=== PATIENT | female | born 1975 | race Caucasian/White ===

== ENCOUNTER 2018-12-28 16:02 | Emergency (ER) | payer MEDICAID, OTHER ==
[~2018-12-28] VITALS: Ht 165.1 cm; Wt 110.0 kg
[2018-12-28] MEDS ORDERED: ondansetron 4mg rapidly disintigrating tab PO ONE (16:55)
[2018-12-28 17:09] LABS: URINE HCG NEGATIVE (NEG)
[2018-12-28] MEDS: LORazepam 0.5 MG tablet PO PRN ×2 (17:10→22:13)
[2018-12-28 17:20] LABS: BASOPHILS # (AUTO) 0.1 X10'3 (0-0.2); BASOPHILS % (AUTO) 0.7 % (0-1); EOSINOPHILS % (AUTO) 0.3 % (0-6); HEMATOCRIT 34.6 % (35.0-45.0); HEMOGLOBIN 11.1 g/dl (12.0-16.0); LYMPHOCYTES # (AUTO) 2.1 X10'3 (1.1-4.8); LYMPHOCYTES % (AUTO) 28.2 % (21-51); MEAN CORPUSCULAR HEMOGLOBIN 23.7 PG (27.0-31.0); MEAN PLATELET VOLUME 7.1 FL (7.4-10.4); MONOCYTES # (AUTO) 0.5 X10'3 (0-0.9); NEUTROPHILS # (AUTO) 4.9 X10'3 (1.8-7.7); NEUTROPHILS % (AUTO) 63.8 % (42-75); PLATELET COUNT 333 X10'3 (140-440); RED BLOOD COUNT 4.67 X10'6 (4.20-5.60); WHITE BLOOD COUNT 7.6 X10'3 (4.5-11.0)
[2018-12-28 17:28] LABS: ALANINE AMINOTRANSFERASE 23 U/L (12-78); ALBUMIN 3.6 G/DL (3.4-5.0); ALBUMIN/GLOBULIN RATIO 0.9 (1.1-1.5); ALKALINE PHOSPHATASE 66 IU/L (46-116); ANION GAP 12 (8-16); ASPARTATE AMINO TRANSFERASE 13 U/L (10-37); BILIRUBIN,TOTAL 0.1 MG/DL (0.1-1.0); BLOOD UREA NITROGEN 10 MG/DL (7-18); BUN/CREATININE RATIO 14.5 (6.6-38.0); CALCIUM 9.1 MG/DL (8.5-10.1); CHLORIDE 105 MMOL/L (99-107); CREATININE 0.69 MG/DL (0.40-0.90); GLUCOSE 111 MG/DL (70-104); POTASSIUM 3.7 MMOL/L (3.5-5.1); SODIUM 140 MMOL/L (135-145); TOTAL CARBON DIOXIDE 23.2 MMOL/L (24-32); TOTAL PROTEIN 7.8 G/DL (6.4-8.2); eGFR > 90 ML/MIN
[2018-12-28 17:32] LABS: URINE AMPHETAMINE SCREEN NEGATIVE (Neg); URINE BARBITUATE SCREEN NEGATIVE (Neg); URINE BENZODIAZEPINES SCREEN POSITIVE (Neg); URINE CANNABINOID SCREEN NEGATIVE (Neg); URINE COCAINE SCREEN NEGATIVE (Neg); URINE METHADONE SCREEN NEGATIVE (Neg); URINE OPIATE SCREEN NEGATIVE (Neg); URINE PHENCYCLIDINE SCREEN NEGATIVE (Neg)
[2018-12-28 17:33] LABS: ETHANOL < 0.010 GM/DL (0.0-0.010)
--- NOTE | 2018-12-28 20:20 | NUR ---
ASSSISTED PT INTO GREEN SCRUBS, COLLECTED URINE SPECIMEN. OFFERED TO TAKE INVENTORY ON PTS BELONGINGS. PT AND STATED THAT HE WILL TAKE ALL HER BELONGINGS HOME, SO NO BELONGINGS TO INVENTORY
--- NOTE | 2018-12-28 20:29 | NUR ---
CALLED AND SET UP PATIENT FOR A TELEPSYCH CONSULT
--- NOTE | 2018-12-28 21:22 | NUR ---
PT ASKING TO VAPE AND TOLD OUR POLICY. PT IS IRRATABLE ABOUT THIS. OFFERED A NICOTINE PATCH AND REPORTS SHE WOULD TRY IT. PT REPORTS SHE SMOKES "ALOT". PATCH AND ATIVAN PRN NOW ORDERED.
--- NOTE | 2018-12-28 21:43 | NUR ---
Pt was brought to overflow room 20 and is now visiting with her .
[2018-12-28] MEDS ORDERED: ARIP2TAB37 PO (21:56)
[2018-12-28] MEDS ORDERED: nicotine 21mg patch - 24 hr TD ONE (22:00)
--- NOTE | 2018-12-28 22:07 | NUR ---
Home meds completed and given to PA and signed and faxed to pharmacy.
--- NOTE | 2018-12-28 22:13 | NUR ---
NOT ABLE TO SCAN ATIVAN, THE PACKAGE TORE WHEN I TOOK IT OUT OF THE [employer] FROM THE OTHER ATIVAN PACKAGE THAT WAS ATTACHED TO IT. I HAD JENNIFER VARMA VERIFY THAT IT WAS ADMINISTERED.
--- NOTE | 2018-12-28 22:14 | NUR ---
GIVEN ATIVAN 1 MG PO, 2ND RN CHECK WITH JENNIFER HUERTA. PACKAGE WOULD NOT SCAN
--- NOTE | 2018-12-28 23:00 | NUR ---
Pt appears to be asleep on right side.
--- NOTE | 2018-12-29 | NUR ---
pt got up, walking as though she is sleep walking. Put her back into bed and she is asleep.
--- NOTE | 2018-12-29 01:10 | NUR ---
Pt still asleep in the same position.
--- NOTE | 2018-12-29 02:00 | NUR ---
continues to sleep
--- NOTE | 2018-12-29 03:01 | NUR ---
No changes to report, she is still asleep in the same position.
--- NOTE | 2018-12-29 04:47 | NUR ---
She repositioned, but still asleep.
--- NOTE | 2018-12-29 05:42 | NUR ---
Pt quietly got up to use the bathroom and is now sitting on the EOB.
[2018-12-29] MEDS: LORazepam 1 MG tablet PO PRN ×2 (06:35→17:49)
--- NOTE | 2018-12-29 06:37 | NUR ---
patient complaining of severe anxiety, provided ativan PRN 1 mg , patient asked if her can bring her prescription glasses and I told her that was fine.
[2018-12-29] MEDS ORDERED: acetaminophen 325mg tablet PO ONE (11:55)
[2018-12-29 17:25] VITALS: BP 132/91
== END 2018-12-29 18:04 ==
LOC: ER 16:02
DX: F32.9 Major depressive disorder, single episode, unspecified (principal); R41.0 Disorientation, unspecified; F41.9 Anxiety disorder, unspecified; F17.210 Nicotine dependence, cigarettes, uncomplicated; Z90.49 Acquired absence of other specified parts of digestive tract; Z88.8 Allergy status to other drugs, medicaments and biological substances; Z79.899 Other long term (current) drug therapy
CPT/HCPCS: 36415; 80053; 80305; 80320; 81025; 84443; 85025; 93005; 99285

== ENCOUNTER 2019-01-19 16:05 | Emergency (ER) | payer MEDICAID, OTHER ==
[~2019-01-19] VITALS: Ht 165.1 cm; Wt 104.5 kg
[~2019-01-19 16:05] MED LIST: ARIP2TAB37 PO
[2019-01-19 16:08] VITALS: BP 124/79
[2019-01-19] MEDS ORDERED: HYDROcodone/acetaminophen 10/325mg tab PO ONE (17:20)
== END 2019-01-19 17:46 | disposition home or self-care (01) ==
LOC: ER 16:05
DX: M25.511 Pain in right shoulder (principal); F17.210 Nicotine dependence, cigarettes, uncomplicated; Z90.49 Acquired absence of other specified parts of digestive tract; Z88.8 Allergy status to other drugs, medicaments and biological substances; W18.30XA Fall on same level, unspecified, initial encounter; Y93.89 Activity, other specified; Y92.090 Kitchen in other non-institutional residence as the place of occurrence of the external cause; Y99.8 Other external cause status
CPT/HCPCS: 73030; 99283

== ENCOUNTER 2021-05-07 13:58 | Emergency (ER) | payer MEDICAID, OTHER ==
[~2021-05-07] VITALS: Ht 165.1 cm; Wt 90.9 kg
[2021-05-07] MEDS ORDERED: AZIT-72 PO (15:38)
[2021-05-07 16:10] LABS: BASOPHILS % (AUTO) 0.5 % (0-1); EOSINOPHILS # (AUTO) 0.2 X10'3 (0-0.9); EOSINOPHILS % (AUTO) 3.3 % (0-6); HEMATOCRIT 38.4 % (35.0-45.0); HEMOGLOBIN 13.4 g/dl (12.0-16.0); LYMPHOCYTES # (AUTO) 1.7 X10'3 (1.1-4.8); LYMPHOCYTES % (AUTO) 28.4 % (21-51); MEAN CORPUSCULAR HEMOGLOBIN 28.3 PG (27.0-31.0); MEAN CORPUSCULAR HGB CONC 34.8 g/dL (33.0-36.5); MEAN CORPUSCULAR VOLUME 81.3 FL (78-98); MEAN PLATELET VOLUME 5.8 FL (7.4-10.4); MONOCYTES # (AUTO) 0.6 X10'3 (0-0.9); MONOCYTES % (AUTO) 9.3 % (2-12); NEUTROPHILS # (AUTO) 3.5 X10'3 (1.8-7.7); NEUTROPHILS % (AUTO) 58.5 % (42-75); PLATELET COUNT 556 X10'3 (140-440); RED BLOOD COUNT 4.72 X10'6 (4.20-5.60); RED CELL DISTRIBUTION WIDTH 13.5 % (11.5-14.5); WHITE BLOOD COUNT 6.1 X10'3 (4.5-11.0)
[2021-05-07 16:28] LABS: ALANINE AMINOTRANSFERASE 29 U/L (12-78); ALBUMIN 3.1 G/DL (3.4-5.0); ALBUMIN/GLOBULIN RATIO 0.7 (1.1-1.5); ALKALINE PHOSPHATASE 80 IU/L (46-116); ANION GAP 11 (8-16); ASPARTATE AMINO TRANSFERASE 18 U/L (10-37); BILIRUBIN,TOTAL 0.3 MG/DL (0.1-1.0); BLOOD UREA NITROGEN 12 MG/DL (7-18); BUN/CREATININE RATIO 15.4 (6.6-38.0); CALCIUM 8.5 MG/DL (8.5-10.1); CHLORIDE 107 MMOL/L (99-107); CREATININE 0.78 MG/DL (0.40-0.90); GLUCOSE 140 MG/DL (70-104); POTASSIUM 3.6 MMOL/L (3.5-5.1); SODIUM 142 MMOL/L (135-145); TOTAL CARBON DIOXIDE 24.1 MMOL/L (24-32); TOTAL PROTEIN 7.6 G/DL (6.4-8.2); eGFR 81 ML/MIN
[2021-05-07] MEDS ORDERED: iohexol 350MG/ML 100ml bottle IV ONE (16:34)
--- NOTE | 2021-05-07 17:46 | NUR ---
TREATED AND SEEN BY FIFI TOLEDO.; NO NURSING NOTES DONE
== END 2021-05-07 17:48 | disposition home or self-care (01) ==
LOC: ER 13:59
DX: U07.1 COVID-19 (principal); J18.9 Pneumonia, unspecified organism; R05 Cough; R42 Dizziness and giddiness; R06.02 Shortness of breath; F41.9 Anxiety disorder, unspecified; F31.9 Bipolar disorder, unspecified; Z90.49 Acquired absence of other specified parts of digestive tract; Z98.890 Other specified postprocedural states; Z72.89 Other problems related to lifestyle; Z88.8 Allergy status to other drugs, medicaments and biological substances; Z79.2 Long term (current) use of antibiotics; Z79.899 Other long term (current) drug therapy
CPT/HCPCS: 36415; 71045; 71275; 80053; 85025; 99285; Q9967

== ENCOUNTER 2022-03-27 04:57 | Inpatient (IN) | payer MEDICAID ==
[~2022-03-27] VITALS: Ht 165.1 cm; Wt 102.3 kg
[2022-03-27] MEDS ORDERED: metoclopramide 5 mg/ml inj IV ONE (05:30)
[2022-03-27] MEDS ORDERED: glycopyrrolate 0.2mg/ml inj IV ONE (05:30)
[2022-03-27] MEDS ORDERED: normal saline 1000ML IV soln IVB ONE ×2 (05:30)
[2022-03-27] MEDS ORDERED: diphenhydrAMINE 50 mg/ml inj IV ONE (05:30)
[2022-03-27] MEDS ORDERED: piperacillin/tazo 3.375gm/50ml 50 ML IV ONE (05:50)
[2022-03-27 07:29] LABS: BASOPHILS % (AUTO) 0.4 % (0-1); EOSINOPHILS % (AUTO) 0.3 % (0-6); HEMOGLOBIN 13.8 g/dl (12.0-16.0); LYMPHOCYTES # (AUTO) 1.2 X10'3 (1.1-4.8); MEAN CORPUSCULAR HEMOGLOBIN 28.4 PG (27.0-31.0); MEAN CORPUSCULAR HGB CONC 34.6 g/dL (33.0-36.5); MEAN CORPUSCULAR VOLUME 82.2 FL (78-98); MEAN PLATELET VOLUME 7.3 FL (7.4-10.4); NEUTROPHILS # (AUTO) 4.4 X10'3 (1.8-7.7); NEUTROPHILS % (AUTO) 66.3 % (42-75); PLATELET COUNT 291 X10'3 (140-440); RED BLOOD COUNT 4.87 X10'6 (4.20-5.60); RED CELL DISTRIBUTION WIDTH 13.3 % (11.5-14.5); WHITE BLOOD COUNT 6.7 X10'3 (4.5-11.0)
[2022-03-27 07:46] LABS: ALANINE AMINOTRANSFERASE 23 U/L (12-78); ALBUMIN 2.8 G/DL (3.4-5.0); ALBUMIN/GLOBULIN RATIO 0.7 (1.1-1.5); ALKALINE PHOSPHATASE 64 IU/L (46-116); ANION GAP 9 (8-16); ASPARTATE AMINO TRANSFERASE 18 U/L (10-37); BILIRUBIN,TOTAL 0.2 MG/DL (0.1-1.0); BLOOD UREA NITROGEN 8 MG/DL (7-18); BUN/CREATININE RATIO 12.3 (6.6-38.0); CALCIUM 8.9 MG/DL (8.5-10.1); CHLORIDE 102 MMOL/L (99-107); CREATININE 0.65 MG/DL (0.40-0.90); GLUCOSE 106 MG/DL (70-104); LIPASE 61 U/L (73-393); POTASSIUM 3.5 MMOL/L (3.5-5.1); SODIUM 134 MMOL/L (135-145); TOTAL CARBON DIOXIDE 22.7 MMOL/L (24-32); eGFR > 90 ML/MIN
[2022-03-27 08:08] LABS: MICROCYTOSIS 1+; PLATELET ESTIMATE NORMAL; TOTAL CELLS COUNTED 100
[2022-03-27] MEDS ORDERED: HYDROcodone/acetaminophen 10/325mg tab PO PRN (09:20)
[2022-03-27] MEDS ORDERED: potassium CL 10mEq/100ml bag 100 ML IV PRN (09:20)
[2022-03-27] MEDS ORDERED: magnesium 4gm in 100ml NS 100 ML IV PRN (09:20)
[2022-03-27] MEDS ORDERED: magnesium Cl slow-release 64mg tablet PO PRN (09:20)
[2022-03-27] MEDS ORDERED: POTASSIUM BICARB 20meq eff tab 20 MEQ TABLET.EFF PO PRN ×2 (09:20)
[2022-03-27] MEDS ORDERED: ondansetron/PF 4mg/2ml inj IV PRN (09:20)
[2022-03-27] MEDS ORDERED: morphine 2 MG/ML inj. syringe IV PRN ×2 (09:20)
[2022-03-27] MEDS ORDERED: HYDROcodone/acetaminophen 5mg/325mg tablet PO PRN (09:20)
[2022-03-27] MEDS ORDERED: ondansetron 4mg rapidly disintigrating tab PO PRN (09:20)
[2022-03-27] MEDS ORDERED: acetaminophen 325mg tablet PO PRN (09:20)
[2022-03-27] MEDS ORDERED: magnesium 2GM in 50ml NS 50 ML IV PRN (09:20)
[2022-03-27] MEDS: morphine 4 MG/ML inj SYRINge IV PRN ×2 (09:21→14:56)
[2022-03-27] MEDS ORDERED: RISP2TAB85 PO (09:40)
[2022-03-27] MEDS ORDERED: DIPH-423 PO (09:41)
[2022-03-27] MEDS ORDERED: MELA1TAB28 PO (09:42)
[2022-03-27 09:48] LABS: URINE HCG NEGATIVE (NEG)
[2022-03-27] MEDS: normal saline 1000ml 1,000 ML IV SCH ×2 (09:50→19:54)
[2022-03-27] MEDS: pantoprazole 40mg Tablet.DR PO SCH (09:51)
[2022-03-27 10:00] LABS: CLARITY,URINE SLIGHTLY CLOUDY (Clear); COLOR,URINE YELLOW (Yellow); GLUCOSE, URINE NEGATIVE (Neg); KETONES,URINE >=80 mg/dl (Neg); LEUKOCYTE ESTERASE ,URINE NEGATIVE (Neg); NITRITES, URINE NEGATIVE (Neg); OCCULT BLOOD,URINE TRACE-INTACT (Neg); PROTEIN,URINE TRACE mg/dl (Neg); UROBILINOGEN,URINE 0.2 E.U/dL (0.2-1.0)
[2022-03-27 10:04] LABS: UA COLLECTION TYPE STRAIGHT CATH
[2022-03-27 10:06] LABS: BACTERIA,URINE FEW /HPF (Neg); MUCUS STRANDS NONE SEEN /LPF (Neg); SQUAMOUS EPITHELIAL CELL,UR MANY /LPF (FEW); WBC,URINE 0-4 /HPF (0-4)
[2022-03-27] MEDS: piperacillin/tazo 3.375gm/50ml 50 ML IV SCH (16:00)
[2022-03-27 16:05] LABS: C DIFF SPECIMEN=DIARRHEA? ACCEPTABLE; C DIFFICILE TOXINS A&B NEGATIVE (Neg)
--- NOTE | 2022-03-27 17:34 | NUR ---
Pt finally sleeping not going to wake for VS
--- NOTE | 2022-03-27 19:15 | NUR ---
Patient in room [facility]TH[facility] 4022. I have received report from JENNIFER Reed and had the opportunity to ask questions and assume patient care.
[2022-03-27 19:30] VITALS: BP 109/68
[2022-03-27] MEDS: heparin, porcine 5000 units/ml vial SQ SCH (19:54)
[2022-03-27] MEDS ORDERED: K and/or MAG REPLACEMENT MC SCH (20:00)
[2022-03-27] MEDS: acetaminophen 325mg tablet PO PRN (20:05)
[2022-03-27] MEDS ORDERED: temazepam 15mg capsule PO PRN (21:00)
[2022-03-27 22:00] VITALS: BP 115/76
[2022-03-28] MEDS: piperacillin/tazo 3.375gm/50ml 50 ML IV SCH ×2 (00:06→08:35)
[2022-03-28] MEDS: acetaminophen 325mg tablet PO PRN ×2 (04:48→11:39)
[2022-03-28] MEDS: normal saline 1000ml 1,000 ML IV SCH (05:23)
[2022-03-28 05:38] LABS: BASOPHILS % (AUTO) 0.6 % (0-1); EOSINOPHILS # (AUTO) 0.1 X10'3 (0-0.9); EOSINOPHILS % (AUTO) 2.4 % (0-6); HEMATOCRIT 36.3 % (35.0-45.0); HEMOGLOBIN 12.1 g/dl (12.0-16.0); LYMPHOCYTES # (AUTO) 1.6 X10'3 (1.1-4.8); MEAN CORPUSCULAR HEMOGLOBIN 27.6 PG (27.0-31.0); MEAN CORPUSCULAR HGB CONC 33.4 g/dL (33.0-36.5); MEAN CORPUSCULAR VOLUME 82.8 FL (78-98); MEAN PLATELET VOLUME 7.5 FL (7.4-10.4); MONOCYTES # (AUTO) 0.5 X10'3 (0-0.9); MONOCYTES % (AUTO) 11.7 % (2-12); NEUTROPHILS % (AUTO) 47.3 % (42-75); PLATELET COUNT 269 X10'3 (140-440); RED BLOOD COUNT 4.39 X10'6 (4.20-5.60); RED CELL DISTRIBUTION WIDTH 13.6 % (11.5-14.5); WHITE BLOOD COUNT 4.2 X10'3 (4.5-11.0)
[2022-03-28 05:59] LABS: ALANINE AMINOTRANSFERASE 65 U/L (12-78); ALBUMIN 2.4 G/DL (3.4-5.0); ALBUMIN/GLOBULIN RATIO 0.7 (1.1-1.5); ALKALINE PHOSPHATASE 149 IU/L (46-116); ANION GAP 10 (8-16); ASPARTATE AMINO TRANSFERASE 61 U/L (10-37); BILIRUBIN,TOTAL 0.3 MG/DL (0.1-1.0); BLOOD UREA NITROGEN 3 MG/DL (7-18); BUN/CREATININE RATIO 4.9 (6.6-38.0); CHLORIDE 107 MMOL/L (99-107); CREATININE 0.61 MG/DL (0.40-0.90); GLUCOSE 94 MG/DL (70-104); POTASSIUM 3.2 MMOL/L (3.5-5.1); SODIUM 141 MMOL/L (135-145); TOTAL PROTEIN 5.9 G/DL (6.4-8.2); eGFR > 90 ML/MIN
[2022-03-28 06:00] VITALS: BP 108/67
--- NOTE | 2022-03-28 06:22 | NUR ---
Problems reprioritized. Patient report given, questions answered & plan of care reviewed with JENNIFER Ramos.
--- NOTE | 2022-03-28 06:38 | NUR ---
Patient in room ORTH[facility] 4022A. I have received report from JENNIFER PETERSON and had the opportunity to ask questions and assume patient care.
[2022-03-28] MEDS ORDERED: nicotine 14mg patch - 24hr TD SCH (08:00)
[2022-03-28] MEDS: heparin, porcine 5000 units/ml vial SQ SCH (08:33)
[2022-03-28] MEDS: pantoprazole 40mg Tablet.DR PO SCH (08:35)
[2022-03-28 10:00] VITALS: BP 129/85
[2022-03-28] MEDS ORDERED: POTA-207 PO (10:41)
[2022-03-28] MEDS ORDERED: AMOX-580 PO (10:41)
[2022-03-28] MEDS ORDERED: NICO-631 TD (10:41)
[2022-03-28] MEDS ORDERED: ONDA4TAB12 PO (10:41)
--- NOTE | 2022-03-28 12:30 | NUR ---
PATIENT STABLE AND APPROPRIATE FOR DISCHARGE, IV REMOVED, EDUCATION GIVEN, NEW MEDS E-SCRIPTED TO PREFERRED PHARMACY, ALL BELONGINGS SENT WITH PATIENT, PATIENT TAKEN TO LOBBY BY WHEELCHAIR TO AN AWAITING CAR WHERE WILL TAKE PATIENT HOME
[2022-03-28] MEDS ORDERED: non-formulary drug (Melatonin/Pyridoxine HCl (B6) (Melatonin 3 mg Tablet) 1 TAB) PO SCH (21:00)
[2022-03-28] MEDS ORDERED: risperiDONE 2mg tablet PO SCH (21:00)
== END 2022-03-28 13:00 | disposition home or self-care (01) | DRG 243 ==
LOC: ER 04:57 → ED HOLD 09:27 → ORTHO 4S 19:26
PROVIDERS: ADMIT Internal Medicine; ATTEND Internal Medicine
DX: K21.9 Gastro-esophageal reflux disease without esophagitis (principal); A09 Infectious gastroenteritis and colitis, unspecified; E87.6 Hypokalemia; F17.210 Nicotine dependence, cigarettes, uncomplicated; F31.9 Bipolar disorder, unspecified; F41.9 Anxiety disorder, unspecified; K59.00 Constipation, unspecified; Z71.6 Tobacco abuse counseling; Z88.8 Allergy status to other drugs, medicaments and biological substances; Z90.49 Acquired absence of other specified parts of digestive tract; Z86.16 Personal history of COVID-19; Z79.899 Other long term (current) drug therapy
CPT/HCPCS: 36415; 74176; 80053; 81001; 81025; 83605; 83690; 84145; 85007; 85025; 87040; 87045; 87046; 87081; 87324; 87449; 89055; 96365; 96375; 99285; C1758; G0378; J1200; J1644; J2270; J2543; J2765; J3490; J7030